=== PATIENT | male | born 1990 ===

== ENCOUNTER 2016-12-30 12:28 | Emergency (ER) | payer OTHER ==
[2016-12-30 12:42] VITALS: BMI 36.9
[2016-12-30 12:45] VITALS: RESP 16; TEMP 98
--- NOTE | 2016-12-30 13:42 | RAD ---
PROCEDURE: Radiographs of the Lumbar Spine. HISTORY: back pain COMPARISON: No prior. FINDINGS: BONES: No fracture or dislocation. Transitional elements suggested. 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 Above this L4-5 suggests mild narrowing. OTHER FINDINGS: None. 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
--- NOTE | 2016-12-30 14:16 | ED PDOC ---
Arrival/HPI - General Historian: Patient - History of Present Illness Time/Duration: > week (2 weeks) Symptom Onset: Gradual Symptom Course: Unchanged Quality: Aching, Tightness Activities at Onset: Significant Context: Work, Other (heavy lifting ) - General Chief Complaint: Back Pain Time Seen by Provider: 12/30/16 13:16 - History of Present Illness Narrative History of Present Illness (Text): 12/30/16 Bryan Gtz is a 26 year old male, whose past medical history includes asthma , presents to the emergency department complaining of history of lower back pain for two weeks. Patient reports he was lifting a heavy box at work today and describes his pain as "achy and tight". Patient did not take any medication for the pain. He states using a back brace, but there has been no relief. Patient denies any weakness, tingling sensation, or radiation of pain to lower extremities. (Renetta Yanes) Modifying Factors (Text): back brace is no help (Renetta Yanes) Past Medical History - Provider Review Nursing Documentation Reviewed: Yes - Infectious Disease Hx of Infectious Diseases: None - Cardiac Hx Cardiac Disorders: No - Pulmonary Hx Respiratory Disorders: Yes Hx Asthma: Yes - Neurological Hx Paralysis: No - HEENT Hx Difficulty Chewing: No - Renal Hx Kidney Stones: No - Endocrine/Metabolic Hx Systemic Lupus Erythematosus: No - Hematological/Oncological Hx Blood Disorders: No - Integumentary Hx Cellulitis: No - Musculoskeletal/Rheumatological Hx Musculoskeletal Disorders: Yes Other/Comment: cellulitis lower leg - Gastrointestinal Hx Gastrointestinal Disorders: No - Psychiatric Hx Psychophysiologic Disorder: No Hx Substance Use: No - Surgical History Other/Comment: L leg surgery - Anesthesia Hx Anesthesia: Yes Hx Anesthesia Reactions: No Family/Social History - Physician Review Nursing Documentation Reviewed: Yes Family/Social History: Unknown Family HX Smoking Status: Heavy Smoker > 10 Cigarettes Daily Hx Alcohol Use: Yes Frequency of alcohol use: Socially Hx Substance Use: No Allergies/Home Meds Allergies/Adverse Reactions: Allergies No Known Allergies Allergy (Verified 12/30/16 12:41) Home Medications: Home Meds Medication Instructions Recorded Confirmed Albuterol HFA [Ventolin HFA 90 1 puff IH PRN PRN 12/30/16 12/30/16 mcg/actuation (8 g)] Review of Systems - Review of Systems Constitutional: absent: Fevers Respiratory: absent: SOB, Cough Cardiovascular: absent: Chest Pain Gastrointestinal: absent: Abdominal Pain, Nausea, Vomiting Musculoskeletal: Back Pain Neurological: absent: Headache, Dizziness, Focal Weakness, Gait Changes, Disequilibrium Physical Exam Vital Signs Reviewed: Yes Temperature: Afebrile Blood Pressure: Normal Pulse: Regular Respiratory Rate: Normal Appearance: Positive for: Well-Appearing, Non-Toxic, Comfortable Pain Distress: None Mental Status: Positive for: Alert and Oriented X 3 - Systems Exam Head: Present: Atraumatic, Normocephalic Conjunctiva: Present: Normal Mouth: Present: Moist Mucous Membranes Neck: Present: Normal Range of Motion, Other (B/L trapezius tenderness). No: MIDLINE TENDERNESS Respiratory/Chest: Present: Clear to Auscultation, Good Air Exchange. No: Respiratory Distress, Accessory Muscle Use Cardiovascular: Present: Regular Rate and Rhythm, Normal S1, S2. No: Murmurs Abdomen: Present: Normal Bowel Sounds. No: Tenderness, Distention, Peritoneal Signs Back: Present: Normal Inspection, Paraspinal Tenderness (lower lumbar paraspinal tenderness, greater on right side compared to left), Other ( tenderness to trapezius bilateral upperback ). No: CVA Tenderness, Midline Tenderness, Pain with Leg Raise Upper Extremity: Present: Normal Inspection, Normal ROM. No: Cyanosis, Edema Lower Extremity: Present: Normal Inspection, Normal ROM. No: Edema Neurological: Present: GCS=15, Speech Normal, Motor Func Grossly Intact, Normal Sensory Function, Gait Normal Skin: Present: Warm, Dry, Normal Color. No: Rashes Psychiatric: Present: Alert, Oriented x 3 Vital Signs Temp Pulse Resp BP Pulse Ox 12/30/16 14:42 79 16 117/82 98 12/30/16 12:44 98.0 F 83 16 114/77 97 Medical Decision Making - RAD Interpretation Nick Setter: Radiologist ED Course and Treatment: 12/30/16 26 year old male with lower back pain. Tenderness to trapezius bilateral upper back and tenderness on paraspinal lower back greater on right side compared to left. No midline tenderness on neck or back. FROM on neck and lower extremities. Plan: -- Flexeril and Toradol -- Reassess and disposition Progress Notes: 12/30/16 13:45 Lumbar spine x-ray: Creator : Dania Montano V. FINDINGS: BONES: No fracture or dislocation. Transitional elements suggested. 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 Lumbar lordotic straightening DISC SPACES: The L5-S1 rudimentary disc space is consistent with transitional elements. Above this L4-5 suggests mild narrowing. OTHER FINDINGS: None. 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 Lumbar lordotic straightening. No fracture or subluxation 12/30/16 Reevaluation: Patient nontoxic well-appearing in no distress with stable vital signs. I advised to followup with the orthopedist within the next 2 days. Return if symptoms worsen persist or new symptoms develop On reevaluation the patient feels better and is in no acute distress. I have discussed the results and plan with the patient, who expresses understanding. Patient given the opportunity to ask question, all questions were answered and there is agreement with the plan to discharge the patient home. Patient is stable for discharge. Patient was instructed to follow up with physician/clinic in 1-2 days or return if symptoms persist/worsen or new concerning symptoms arise. Impression: Back pain Motrin every 6 hours as needed for pain Flexeril one tablet every 8 hours as needed for muscle spasms: May cause drowsiness Followup with the orthopedist within the next 2 days Followup with primary care physician within the next 2 days Return if symptoms worsen persist or if new symptoms develop (Renetta Yanes) - RAD Interpretation Radiology Orders: 12/30/16 13:17 LS SPINE WITH OBL > 18 YRS OLD [RAD] Stat - Medication Orders Current Medication Orders: Discontinued Medications Cyclobenzaprine HCl (Flexeril) 10 mg PO STAT STA Stop: 12/30/16 13:18 Last Admin: 12/30/16 13:52 Dose: 10 mg Ketorolac Tromethamine (Toradol) 60 mg IM STAT STA Stop: 12/30/16 13:18 Last Admin: 12/30/16 13:52 Dose: 60 mg MAR Pain Assessment Document 12/30/16 13:52 EQ (Rec: 12/30/16 13:52 EQ [id number]) Pain Reassessment Is this a pain reassessment? No Sleep Is patient sleeping during reassessment? No Presence of Pain Presence of Pain Yes Pain Scale Used Pain Scale Used Numeric IM Administration Charges Document 12/30/16 13:52 EQ (Rec: 12/30/16 13:52 EQ [id number]) Charges for Administration # of IM Administrations 1 - Scribe Statement The provider has reviewed the documentation as recorded by the Scribe - Scribe Statement Mendy Swan Provider Scribe Attestation: All medical record entries made by the Scribe were at my direction and personally dictated by me. I have reviewed the chart and agree that the record accurately reflects my personal performance of the history, physical exam, medical decision making, and the department course for this patient. I have also personally directed, reviewed, and agree with the discharge instructions and disposition. (Renetta Yanes) Disposition/Present on Arrival - Present on Arrival Any Indicators Present on Arrival: No History of DVT/PE: No History of Uncontrolled Diabetes: No Urinary Catheter: No History of Decub. Ulcer: No History Surgical Site Infection Following: None - Disposition Have Diagnosis and Disposition been Completed?: Yes Disposition Time: 14:14 Patient Plan: Discharge - Disposition Diagnosis: Back pain Disposition: HOME/ ROUTINE Condition: GOOD Discharge Instructions (ExitCare): Acute Low Back Pain (ED) Additional Instructions: Motrin every 6 hours as needed for pain Flexeril one tablet every 8 hours as needed for muscle spasms: May cause drowsiness Followup with the orthopedist within the next 2 days Followup with primary care physician within the next 2 days Return if symptoms worsen persist or if new symptoms develop Prescriptions: Cyclobenzaprine [Cyclobenzaprine HCl] 10 mg PO Q8 #10 tab Ibuprofen [Motrin] 600 mg PO Q6H PRN #20 tab PRN Reason: pain/fever reduction Referrals: Uzma Ware MD [Primary Care Provider] - Follow up with primary Mando Raman MD [Staff Provider] - Follow up with primary Armin Arvizu DO [Staff Provider] - Follow up with primary Forms: [employer] (R[place]an), WORK NOTE
[2016-12-30 14:43] VITALS: BP 117/82; PULSE 79; O2SAT 98
== END 2016-12-30 14:42 | disposition home or self-care (01) ==
LOC: ED 12:28
DX: M54.5 Low back pain (principal)
CPT/HCPCS: 72110; 96372; 99282; J1885